=== PATIENT | male | born 1960 | race Caucasian/White ===

== ENCOUNTER → 2017-03-19 | Outpatient (CLI) | payer OTHER | END | disposition home or self-care (01) | LOC: CFH 11:15 | PROVIDERS: ATTEND Family Medicine | DX: M51.36 Other intervertebral disc degeneration, lumbar region (principal); M41.86 Other forms of scoliosis, lumbar region | CPT/HCPCS: 72100 ==

== ENCOUNTER 2018-11-18 20:43 | Inpatient (IN) | payer OTHER ==
[~2018-11-18] VITALS: Ht 182.9 cm; Wt 126.6 kg
--- NOTE | 2018-11-18 22:23 | NUR ---
PT TO ROOM FROM LOBBY VIA WHEELCHAIR
[2018-11-18] MEDS ORDERED: DICL75TA3 PO (22:29)
[2018-11-18] MEDS ORDERED: HYDR-3237 PO (22:29)
--- NOTE | 2018-11-18 22:30 | NUR ---
assessment made. PA at bedside.
[2018-11-18] MEDS ORDERED: MORPHINE SULFATE 4 MG/ML, 1ML ONE ×2 (22:51→23:35)
--- NOTE | 2018-11-18 22:51 | NUR ---
PT IN US AT THIS TIME
[2018-11-18 22:52] LABS: BASOPHILS # (AUTO) 0.08 x10^3/uL (0-0.1); BASOPHILS % (AUTO) 1 % (0-1); EOSINOPHILS # (AUTO) 0.36 x10^3/uL (0-0.4); EOSINOPHILS % (AUTO) 3 % (1-7); LYMPHOCYTES # (AUTO) 3.67 x10^3/uL (1-3.4); LYMPHOCYTES % (AUTO) 34 % (22-44); MD NO; MEAN CORPUSCULAR HEMOGLOBIN 30.5 pg (27.5-34.5); MEAN CORPUSCULAR HGB CONC 33.2 g/dL (33.2-36.2); MEAN CORPUSCULAR VOLUME 91.8 fL (81-97); MEAN PLATELET VOLUME 9.3 fL (7.4-10.4); MONOCYTES # (AUTO) 0.87 x10^3/uL (0.2-0.8); MONOCYTES % (AUTO) 8 % (2-9); NEUTROPHILS # (AUTO) 5.91 x10^3/uL (1.8-6.8); NEUTROPHILS % (AUTO) 54 % (42-75); PLATELET COUNT 211 x10^3/uL (130-400); RED BLOOD COUNT 5.68 x10^6/uL (4.38-5.82); RED CELL DISTRIBUTION WIDTH 14.2 % (9.4-14.8)
[2018-11-18 22:57] LABS: INTERNATIONAL NORMALIZED RATIO 0.96 (0.93-1.1); PROTHROMBIN TIME 10.1 Seconds (9.6-11.5)
[2018-11-18 22:59] LABS: ALBUMIN 3.5 g/dL (3.4-5.0); ANION GAP 5 mmol/L (5-15); CALCIUM 8.7 mg/dL (8.5-10.1); CHLORIDE 110 mmol/L (98-107)
[2018-11-18] MEDS ORDERED: SODIUM CHLORIDE FLUSH 10ML SYR IVF ONE (23:00)
--- NOTE | 2018-11-18 23:01 | NUR ---
PT BACK FROM US. IV ESTABLISHED. PT VISIBLY UNCOMFORTABLE. UNABLE TO SIT STILL. C/O SEVERE PAIN TO RIGHT FOOT. FAINT PULSES HEARD IN RIGHT FOOT WITH DOPPLER. ERP AWARE
[2018-11-18 23:02] LABS: ALANINE AMINOTRANSFERASE 135 U/L (12-78); ALKALINE PHOSPHATASE 81 U/L (45-117); BILIRUBIN,TOTAL 0.2 mg/dL (0.2-1.0); CREATININE 1.28 mg/dL (0.7-1.3); TOTAL PROTEIN 6.5 g/dL (6.4-8.2)
[2018-11-18] MEDS: MORPHINE SULFATE 4 MG/ML, 1ML IVPush PRN ×2 (23:16→23:39)
--- NOTE | 2018-11-18 23:16 | NUR ---
PT MEDICATED PER EMAR WITH MORPHINE FOR PAIN. 5 RIGHTS ADDRESSED.
--- NOTE | 2018-11-18 23:39 | NUR ---
PT STILL IN PAIN DESPITE PAIN MEDS. STATES THE FIRST DOSE HELPED WITH PAIN IN LEG BUT NOT FOOT. SITTING IN CHAIR AT BEDSIDE ROCKING BACK AND FORTH. RE MEDICATED FOR PAIN PER EMAR. 5 RIGHTS ADDRESSED. CHART UP FOR RECHECK. WILL CONTINUE TO MONITOR.
--- NOTE | 2018-11-18 23:48 | NUR ---
DAVIS MOBLEY AT BEDSIDE UPDATING PT ON POC AND LABS/TESTS
--- NOTE | 2018-11-18 23:58 | NUR ---
PT REPORTS PAIN IS "MUCH BETTER" SINCE SECOND DOSE OF PAIN MEDICATION HAS BEEN GIVEN.
--- NOTE | 2018-11-19 00:29 | NUR ---
PT APPEARS MORE COMFORTABLE. PT STATES PAIN IS "MINIMAL" AT THIS TIME. PT BACK ON GURNEY WATCHING TV. WILL CONTINUE TO MONITOR.
[2018-11-19] MEDS ORDERED: MORPHINE SULFATE 4 MG/ML, 1ML ONE (00:46)
[2018-11-19] MEDS ORDERED: HEPARIN 25,000 UNITS/500ML PMX 500 ML ONE (00:46)
[2018-11-19] MEDS ORDERED: HEPARIN 5,000 UNITS/ML, 1ML ONE (00:46)
--- NOTE | 2018-11-19 00:52 | NUR ---
PT IN CT AT THIS TIME.
[2018-11-19] MEDS ORDERED: HEPARIN 25,000 UNITS/500ML PMX 500 ML IV PRN (01:00)
[2018-11-19] MEDS ORDERED: HEPARIN 5,000 UNITS/ML, 1ML IV ONE (01:00)
[2018-11-19] MEDS ORDERED: MORPHINE SULFATE 4 MG/ML, 1ML IVPush PRN ×2 (01:00→07:00)
[2018-11-19] MEDS ORDERED: OMNIPAQUE 350 MG/ML, 100ML BOTTLE ONE (01:21)
[2018-11-19] MEDS ORDERED: morphine SULFATE 10 MG/ML, 1ML IVPush PRN ×2 (01:30→02:00)
[2018-11-19] MEDS ORDERED: ACETAMINOPHEN 325 MG TABLET PO PRN (01:30)
[2018-11-19] MEDS ORDERED: OXYcodone/APAP 5/325MG TABLET PO PRN (02:00)
[2018-11-19 03:20] VITALS: BP 148/91
[2018-11-19] MEDS ORDERED: HYDROmorphone 2 MG/ML, 1ML IVPush PRN (03:30)
[2018-11-19] MEDS ORDERED: HYDROmorphone 2 MG/ML, 1ML ONE ×3 (03:31→11:40)
[2018-11-19] MEDS: OXYcodone IR 5MG TABLET PO PRN (03:38)
[2018-11-19] MEDS: ACETAMINOPHEN 500 MG TABLET PO SCH ×5 (03:55→21:12)
[2018-11-19] MEDS: LACTATED RINGERS 1,000 ML IV SCH ×3 (03:55→21:12)
[2018-11-19] MEDS ORDERED: OXYcodone/APAP 5/325MG TABLET PO SCH (04:00)
[2018-11-19 05:10] LABS: ANION GAP 4 mmol/L (5-15); BASOPHILS # (AUTO) 0.05 x10^3/uL (0-0.1); BASOPHILS % (AUTO) 1 % (0-1); CALCIUM 8.1 mg/dL (8.5-10.1); CHLORIDE 111 mmol/L (98-107); EOSINOPHILS # (AUTO) 0.31 x10^3/uL (0-0.4); EOSINOPHILS % (AUTO) 4 % (1-7); LYMPHOCYTES # (AUTO) 3.02 x10^3/uL (1-3.4); LYMPHOCYTES % (AUTO) 36 % (22-44); MD NO; MEAN CORPUSCULAR HEMOGLOBIN 31.4 pg (27.5-34.5); MEAN CORPUSCULAR HGB CONC 34.5 g/dL (33.2-36.2); MEAN CORPUSCULAR VOLUME 91.1 fL (81-97); MEAN PLATELET VOLUME 9.2 fL (7.4-10.4); MONOCYTES # (AUTO) 0.72 x10^3/uL (0.2-0.8); MONOCYTES % (AUTO) 9 % (2-9); NEUTROPHILS # (AUTO) 4.38 x10^3/uL (1.8-6.8); NEUTROPHILS % (AUTO) 52 % (42-75); PLATELET COUNT 179 x10^3/uL (130-400)
[2018-11-19 05:12] LABS: CREATININE 1.04 mg/dL (0.7-1.3)
[2018-11-19] MEDS ORDERED: HEPARIN 1,000 UNITS/ML, 30ML ONE ×2 (05:57→08:49)
[2018-11-19] MEDS ORDERED: BACITRACIN 50,000 UNIT ONE (05:57)
[2018-11-19] MEDS ORDERED: PAPAVERINE 30 MG/ML, 2ML ONE (05:58)
[2018-11-19] MEDS ORDERED: THROMBIN 20,000 UNIT VIAL TP ONE (05:58)
[2018-11-19] MEDS ORDERED: FENTANYL PF 250 MCG/5ML ONE (06:17)
[2018-11-19] MEDS ORDERED: PROMETHAZINE 12.5 MG SUPP PR PRN (07:00)
[2018-11-19] MEDS ORDERED: LABETALOL 5MG/ML, 20ML IV PRN (07:00)
[2018-11-19] MEDS ORDERED: OXYcodone 5 MG/5 ML ORAL.SOL UDC PO PRN (07:00)
[2018-11-19] MEDS ORDERED: ONDANSETRON 2MG/ML, 2ML IV PRN (07:00)
[2018-11-19] MEDS ORDERED: PROMETHAZINE 25 MG/ML, 1ML IV PRN (07:00)
[2018-11-19] MEDS ORDERED: PROMETHAZINE 25 MG SUPP PR PRN (07:00)
[2018-11-19] MEDS ORDERED: hydrALAzine 20 MG/ML, 1ML IV PRN (07:00)
[2018-11-19] MEDS ORDERED: MEPERIDINE/PF 25MG/0.5ML IVPush PRN (07:00)
[2018-11-19] MEDS ORDERED: ONDANSETRON ODT 8 MG PO PRN (07:00)
[2018-11-19] MEDS ORDERED: PROMETHAZINE 25 MG/ML, 1ML IM PRN ×2 (07:00)
[2018-11-19] MEDS ORDERED: ROCURONIUM 10MG/ML,5ML ONE (09:59)
[2018-11-19] MEDS ORDERED: GLYCOPYRROLATE 0.2MG/1ML, 5ML ONE (09:59)
[2018-11-19] MEDS ORDERED: NEOSTIGMINE 1 MG/ML, 10ML ONE (09:59)
[2018-11-19] MEDS ORDERED: CEFAZOLIN 1,000 MG ONE (09:59)
[2018-11-19] MEDS ORDERED: PROPOFOL 10 MG/ML, 20ML ONE (09:59)
[2018-11-19] MEDS ORDERED: FENTANYL PF 100 MCG/2ML ONE ×2 (10:54→11:40)
[2018-11-19] MEDS ORDERED: OXYcodone 5 MG/5 ML ORAL.SOL UDC ONE (10:54)
[2018-11-19] MEDS: FENTANYL PF 100 MCG/2ML IV PRN ×3 (11:06→11:49)
[2018-11-19] MEDS: HYDROmorphone 2 MG/ML, 1ML IVPush PRN ×6 (11:07→12:50)
[2018-11-19] MEDS: LABETALOL 5 MG/ML SYRINGE IV PRN ×4 (11:07→12:51)
[2018-11-19] MEDS ORDERED: VISIPAQUE 270 MG/ML, 150ML BOTTLE ONE (11:14)
[2018-11-19] MEDS ORDERED: hydrALAzine 20 MG/ML, 1ML ONE (11:40)
[2018-11-19 14:00] VITALS: BP 145/82
[2018-11-19 20:00] VITALS: BP 121/75
[2018-11-19] MEDS: HEPARIN 25,000 UNITS/500ML PMX 500 ML IV PRN (21:20)
[2018-11-19] MEDS: HEPARIN 5,000 UNITS/ML, 1ML IV PRN (23:35)
[2018-11-20] MEDS: ACETAMINOPHEN 500 MG TABLET PO SCH ×7 (00:27→23:49)
[2018-11-20 03:18] VITALS: BP 120/84
[2018-11-20] MEDS ORDERED: CALCIUM CARBONATE 500 MG TAB.CHEW PO ONE (03:30)
[2018-11-20 05:58] LABS: ANION GAP 6 mmol/L (5-15); CALCIUM 8.4 mg/dL (8.5-10.1); CHLORIDE 99 mmol/L (98-107)
[2018-11-20 06:00] LABS: MEAN CORPUSCULAR HEMOGLOBIN 31.3 pg (27.5-34.5); MEAN CORPUSCULAR HGB CONC 33.9 g/dL (33.2-36.2); MEAN CORPUSCULAR VOLUME 92.3 fL (81-97); MEAN PLATELET VOLUME 8.9 fL (7.4-10.4); PLATELET COUNT 146 x10^3/uL (130-400); RED BLOOD COUNT 5.04 x10^6/uL (4.38-5.82); RED CELL DISTRIBUTION WIDTH 14.2 % (9.4-14.8)
[2018-11-20 06:02] LABS: CHOL/HDL RATIO 4.5; CHOLESTEROL, TOTAL 143 mg/dL (140-239); CREATININE 0.94 mg/dL (0.7-1.3); HDL CHOL % 22 % (26-37); HDL CHOLESTEROL (DIRECT) 32 mg/dL (40-60); LDL CHOLESTEROL,CALCULATED 84 mg/dL (54-169); LDL/HDL RATIO 2.6 (0.5-3.0); TRIGLYCERIDES 133 mg/dL (50-200); VLDL CHOLESTEROL 27 mg/dL (0-25)
[2018-11-20] MEDS: HEPARIN 5,000 UNITS/ML, 1ML IV PRN ×3 (06:11→20:51)
[2018-11-20 06:37] LABS: BASOPHILS # (AUTO) 0.05 x10^3/uL (0-0.1); BASOPHILS % (AUTO) 0 % (0-1); EOSINOPHILS # (AUTO) 0.09 x10^3/uL (0-0.4); EOSINOPHILS % (AUTO) 1 % (1-7); LYMPHOCYTES # (AUTO) 1.66 x10^3/uL (1-3.4); LYMPHOCYTES % (AUTO) 12 % (22-44); MD SCAN; MONOCYTES # (AUTO) 1.51 x10^3/uL (0.2-0.8); MONOCYTES % (AUTO) 11 % (2-9); NEUTROPHILS % (AUTO) 76 % (42-75)
[2018-11-20] MEDS: LACTATED RINGERS 1,000 ML IV SCH ×3 (06:45→16:36)
[2018-11-20 06:47] LABS: HEMOGLOBIN A1C 5.7 % (4.2-6.3)
[2018-11-20 08:00] VITALS: BP 126/80
[2018-11-20] MEDS: FAMOTIDINE 20 MG TABLET PO SCH ×2 (08:28→20:03)
[2018-11-20] MEDS: NICOTINE 21 MG/24 HR PATCH.TD24 TD SCH (09:00)
[2018-11-20] MEDS: HEPARIN 25,000 UNITS/500ML PMX 500 ML IV PRN (13:38)
[2018-11-20 14:00] VITALS: BP 114/79
[2018-11-20 18:50] VITALS: BP 126/76
[2018-11-20] MEDS: ATORVASTATIN 80 MG TABLET PO SCH (20:03)
[2018-11-21] MEDS: LACTATED RINGERS 1,000 ML IV SCH ×3 (00:26→19:18)
[2018-11-21 00:28] VITALS: BP 133/85
[2018-11-21 02:54] LABS: BASOPHILS # (AUTO) 0.08 x10^3/uL (0-0.1); BASOPHILS % (AUTO) 1 % (0-1); EOSINOPHILS % (AUTO) 1 % (1-7); LYMPHOCYTES % (AUTO) 12 % (22-44); MD NO; MEAN CORPUSCULAR HEMOGLOBIN 30.9 pg (27.5-34.5); MEAN CORPUSCULAR HGB CONC 33.6 g/dL (33.2-36.2); MEAN CORPUSCULAR VOLUME 92.2 fL (81-97); MEAN PLATELET VOLUME 8.7 fL (7.4-10.4); MONOCYTES # (AUTO) 1.44 x10^3/uL (0.2-0.8); MONOCYTES % (AUTO) 12 % (2-9); NEUTROPHILS # (AUTO) 8.68 x10^3/uL (1.8-6.8); NEUTROPHILS % (AUTO) 74 % (42-75); PLATELET COUNT 120 x10^3/uL (130-400); RED BLOOD COUNT 4.69 x10^6/uL (4.38-5.82); RED CELL DISTRIBUTION WIDTH 14.4 % (9.4-14.8)
[2018-11-21 03:07] LABS: ALANINE AMINOTRANSFERASE 76 U/L (12-78); ALBUMIN 2.8 g/dL (3.4-5.0); ANION GAP 3 mmol/L (5-15); CALCIUM 8.3 mg/dL (8.5-10.1); CHLORIDE 101 mmol/L (98-107); CREATININE 0.87 mg/dL (0.7-1.3)
[2018-11-21 03:09] LABS: ALKALINE PHOSPHATASE 67 U/L (45-117); BILIRUBIN,TOTAL 0.3 mg/dL (0.2-1.0); TOTAL PROTEIN 5.9 g/dL (6.4-8.2)
[2018-11-21] MEDS: HEPARIN 5,000 UNITS/ML, 1ML IV PRN ×3 (03:18→17:04)
[2018-11-21] MEDS: HEPARIN 25,000 UNITS/500ML PMX 500 ML IV PRN ×2 (03:23→15:22)
[2018-11-21] MEDS: ACETAMINOPHEN 500 MG TABLET PO SCH ×5 (03:24→21:06)
[2018-11-21 06:40] VITALS: BP 140/88
[2018-11-21] MEDS: FAMOTIDINE 20 MG TABLET PO SCH ×2 (08:50→21:06)
[2018-11-21] MEDS: OXYcodone IR 5MG TABLET PO PRN ×3 (08:50→17:50)
[2018-11-21] MEDS: NICOTINE 21 MG/24 HR PATCH.TD24 TD SCH (08:51)
[2018-11-21 12:37] VITALS: BP 156/81
[2018-11-21 20:52] VITALS: BP 143/89
[2018-11-21] MEDS: ATORVASTATIN 80 MG TABLET PO SCH (21:06)
[2018-11-22 00:45] VITALS: BP 152/92
[2018-11-22] MEDS: ACETAMINOPHEN 500 MG TABLET PO SCH ×7 (00:50→20:50)
[2018-11-22] MEDS: OXYcodone IR 5MG TABLET PO PRN ×4 (00:58→15:29)
[2018-11-22] MEDS: HEPARIN 25,000 UNITS/500ML PMX 500 ML IV PRN (00:59)
[2018-11-22] MEDS: LACTATED RINGERS 1,000 ML IV SCH ×2 (02:55→11:06)
[2018-11-22 04:44] VITALS: BP 147/84
[2018-11-22 05:32] LABS: MEAN CORPUSCULAR HGB CONC 33.7 g/dL (33.2-36.2); MEAN CORPUSCULAR VOLUME 92.2 fL (81-97); MEAN PLATELET VOLUME 9.2 fL (7.4-10.4); PLATELET COUNT 122 x10^3/uL (130-400); RED BLOOD COUNT 4.52 x10^6/uL (4.38-5.82); RED CELL DISTRIBUTION WIDTH 14.2 % (9.4-14.8)
[2018-11-22 05:45] LABS: ALBUMIN 2.4 g/dL (3.4-5.0); ANION GAP 4 mmol/L (5-15); CALCIUM 8.3 mg/dL (8.5-10.1); CHLORIDE 105 mmol/L (98-107)
[2018-11-22 05:49] LABS: ALANINE AMINOTRANSFERASE 71 U/L (12-78); ALKALINE PHOSPHATASE 58 U/L (45-117); BILIRUBIN,TOTAL 0.5 mg/dL (0.2-1.0); CREATININE 0.73 mg/dL (0.7-1.3); TOTAL PROTEIN 5.7 g/dL (6.4-8.2)
[2018-11-22 06:20] LABS: BASOPHILS # (AUTO) 0.04 x10^3/uL (0-0.1); BASOPHILS % (AUTO) 0 % (0-1); EOSINOPHILS # (AUTO) 0.21 x10^3/uL (0-0.4); EOSINOPHILS % (AUTO) 2 % (1-7); LYMPHOCYTES # (AUTO) 1.86 x10^3/uL (1-3.4); LYMPHOCYTES % (AUTO) 16 % (22-44); MD SCAN; MONOCYTES # (AUTO) 1.55 x10^3/uL (0.2-0.8); MONOCYTES % (AUTO) 13 % (2-9); NEUTROPHILS # (AUTO) 7.96 x10^3/uL (1.8-6.8); NEUTROPHILS % (AUTO) 69 % (42-75)
[2018-11-22 07:03] VITALS: BP 151/87
[2018-11-22] MEDS: FAMOTIDINE 20 MG TABLET PO SCH ×2 (07:56→20:50)
[2018-11-22] MEDS: NICOTINE 21 MG/24 HR PATCH.TD24 TD SCH (07:58)
[2018-11-22] MEDS: APIXABAN 5 MG TABLET PO SCH ×2 (11:58→20:50)
[2018-11-22 12:13] VITALS: BP 142/69
[2018-11-22 19:30] VITALS: BP 167/95
[2018-11-22] MEDS: ATORVASTATIN 80 MG TABLET PO SCH (20:50)
[2018-11-23 01:13] VITALS: BP 147/99
[2018-11-23] MEDS: ACETAMINOPHEN 500 MG TABLET PO SCH ×6 (01:20→22:40)
[2018-11-23] MEDS: OXYcodone IR 5MG TABLET PO PRN ×3 (05:12→22:40)
[2018-11-23 07:03] VITALS: BP 153/90
[2018-11-23] MEDS: FAMOTIDINE 20 MG TABLET PO SCH ×2 (08:19→22:40)
[2018-11-23] MEDS: NICOTINE 21 MG/24 HR PATCH.TD24 TD SCH (08:19)
[2018-11-23] MEDS: APIXABAN 5 MG TABLET PO SCH ×2 (08:19→22:40)
[2018-11-23 13:40] VITALS: BP 140/93
[2018-11-23 20:19] VITALS: BP 141/82
[2018-11-23] MEDS: ATORVASTATIN 80 MG TABLET PO SCH (22:40)
[2018-11-24 00:34] VITALS: BP 131/91
[2018-11-24] MEDS: ACETAMINOPHEN 500 MG TABLET PO SCH ×6 (01:41→20:41)
[2018-11-24 05:20] LABS: ALBUMIN 2.4 g/dL (3.4-5.0); ANION GAP 4 mmol/L (5-15); CALCIUM 8.3 mg/dL (8.5-10.1); CHLORIDE 105 mmol/L (98-107)
[2018-11-24 05:23] LABS: ALANINE AMINOTRANSFERASE 89 U/L (12-78); ALKALINE PHOSPHATASE 62 U/L (45-117); BILIRUBIN,TOTAL 0.7 mg/dL (0.2-1.0); CREATININE 0.75 mg/dL (0.7-1.3); TOTAL PROTEIN 6.1 g/dL (6.4-8.2)
[2018-11-24 05:34] LABS: BASOPHILS # (AUTO) 0.03 x10^3/uL (0-0.1); BASOPHILS % (AUTO) 0 % (0-1); EOSINOPHILS # (AUTO) 0.27 x10^3/uL (0-0.4); EOSINOPHILS % (AUTO) 2 % (1-7); LYMPHOCYTES # (AUTO) 1.67 x10^3/uL (1-3.4); LYMPHOCYTES % (AUTO) 15 % (22-44); MD NO; MEAN CORPUSCULAR HEMOGLOBIN 30.5 pg (27.5-34.5); MEAN CORPUSCULAR HGB CONC 33.4 g/dL (33.2-36.2); MEAN CORPUSCULAR VOLUME 91.4 fL (81-97); MEAN PLATELET VOLUME 8.9 fL (7.4-10.4); MONOCYTES # (AUTO) 1.34 x10^3/uL (0.2-0.8); MONOCYTES % (AUTO) 12 % (2-9); NEUTROPHILS # (AUTO) 7.62 x10^3/uL (1.8-6.8); NEUTROPHILS % (AUTO) 70 % (42-75); PLATELET COUNT 188 x10^3/uL (130-400); RED CELL DISTRIBUTION WIDTH 13.9 % (9.4-14.8)
[2018-11-24] MEDS: OXYcodone IR 5MG TABLET PO PRN ×4 (05:48→23:03)
[2018-11-24 08:28] VITALS: BP 127/75
[2018-11-24] MEDS: FAMOTIDINE 20 MG TABLET PO SCH ×2 (08:46→20:41)
[2018-11-24] MEDS: APIXABAN 5 MG TABLET PO SCH ×2 (08:46→20:41)
[2018-11-24] MEDS: NICOTINE 21 MG/24 HR PATCH.TD24 TD SCH (08:47)
[2018-11-24 13:08] VITALS: BP 132/86
[2018-11-24 13:36] VITALS: BP 138/85
[2018-11-24] MEDS: HYDROmorphone 1 MG/ML, 1ML INJ IV PRN (15:50)
[2018-11-24 19:00] VITALS: BP 126/76
[2018-11-24] MEDS: ATORVASTATIN 80 MG TABLET PO SCH (20:41)
[2018-11-25] MEDS: ACETAMINOPHEN 500 MG TABLET PO SCH ×6 (01:13→20:55)
[2018-11-25 02:52] VITALS: BP 111/72
[2018-11-25] MEDS: OXYcodone IR 5MG TABLET PO PRN ×5 (03:33→20:55)
[2018-11-25 07:48] VITALS: BP 115/70
[2018-11-25] MEDS: APIXABAN 5 MG TABLET PO SCH ×2 (07:55→20:55)
[2018-11-25] MEDS: FAMOTIDINE 20 MG TABLET PO SCH ×2 (07:55→20:55)
[2018-11-25] MEDS: NICOTINE 21 MG/24 HR PATCH.TD24 TD SCH (07:55)
[2018-11-25 12:30] VITALS: BP 134/92
[2018-11-25] MEDS ORDERED: HYDROmorphone 2 MG/ML, 1ML ONE (18:01)
[2018-11-25] MEDS: HYDROmorphone 1 MG/ML, 1ML INJ IV PRN (18:03)
[2018-11-25 20:04] VITALS: BP 143/82
[2018-11-25] MEDS: ATORVASTATIN 80 MG TABLET PO SCH (20:55)
[2018-11-26] MEDS: ACETAMINOPHEN 500 MG TABLET PO SCH ×6 (01:09→20:29)
[2018-11-26] MEDS: OXYcodone IR 5MG TABLET PO PRN ×5 (01:10→21:02)
[2018-11-26 03:23] VITALS: BP 116/78
[2018-11-26 08:08] VITALS: BP 133/86
[2018-11-26] MEDS: NICOTINE 21 MG/24 HR PATCH.TD24 TD SCH (10:12)
[2018-11-26] MEDS: FAMOTIDINE 20 MG TABLET PO SCH ×2 (10:12→20:29)
[2018-11-26] MEDS: APIXABAN 5 MG TABLET PO SCH ×2 (10:12→20:29)
[2018-11-26 13:55] VITALS: BP 116/71
[2018-11-26 19:45] VITALS: BP 130/83
[2018-11-26] MEDS: ATORVASTATIN 80 MG TABLET PO SCH (20:29)
[2018-11-27] MEDS: OXYcodone IR 5MG TABLET PO PRN ×5 (01:00→21:03)
[2018-11-27] MEDS: ACETAMINOPHEN 500 MG TABLET PO SCH ×6 (01:00→21:03)
[2018-11-27 01:02] VITALS: BP 115/78
[2018-11-27 07:14] VITALS: BP 123/83
[2018-11-27] MEDS: FAMOTIDINE 20 MG TABLET PO SCH ×2 (09:28→21:02)
[2018-11-27] MEDS: APIXABAN 5 MG TABLET PO SCH ×2 (09:28→21:02)
[2018-11-27] MEDS: NICOTINE 21 MG/24 HR PATCH.TD24 TD SCH (09:29)
[2018-11-27 13:05] VITALS: BP 128/72
[2018-11-27 19:08] VITALS: BP 111/75
[2018-11-27] MEDS: ATORVASTATIN 80 MG TABLET PO SCH (21:01)
[2018-11-27] MEDS ORDERED: HYDROmorphone 2 MG/ML, 1ML IV PRN (23:30)
[2018-11-28] MEDS: ACETAMINOPHEN 500 MG TABLET PO SCH ×6 (00:59→21:01)
[2018-11-28] MEDS: OXYcodone IR 5MG TABLET PO PRN ×5 (01:00→21:02)
[2018-11-28 01:04] VITALS: BP 115/78
[2018-11-28] MEDS: FAMOTIDINE 20 MG TABLET PO SCH ×2 (07:48→21:01)
[2018-11-28] MEDS: NICOTINE 21 MG/24 HR PATCH.TD24 TD SCH (07:48)
[2018-11-28] MEDS: APIXABAN 5 MG TABLET PO SCH ×2 (07:48→21:02)
[2018-11-28 08:02] VITALS: BP 145/75
[2018-11-28 13:03] VITALS: BP 133/82
[2018-11-28 18:27] VITALS: BP 124/80
[2018-11-28] MEDS: ATORVASTATIN 80 MG TABLET PO SCH (21:01)
[2018-11-29 00:23] VITALS: BP 108/70
[2018-11-29] MEDS: ACETAMINOPHEN 500 MG TABLET PO SCH ×4 (01:29→14:32)
[2018-11-29] MEDS: OXYcodone IR 5MG TABLET PO PRN ×3 (01:32→10:24)
[2018-11-29 07:05] VITALS: BP 112/73
[2018-11-29] MEDS: FAMOTIDINE 20 MG TABLET PO SCH (10:24)
[2018-11-29] MEDS: NICOTINE 21 MG/24 HR PATCH.TD24 TD SCH (10:25)
[2018-11-29] MEDS: APIXABAN 5 MG TABLET PO SCH (10:25)
[2018-11-29] MEDS ORDERED: OXYC5TAB3 PO (12:41)
[2018-11-29] MEDS ORDERED: APIX5TAB PO (12:41)
[2018-11-29] MEDS ORDERED: ATOR-2 PO (12:41)
[2018-11-29] MEDS ORDERED: NICO-487 TD (12:41)
[2018-11-29 13:22] VITALS: BP 148/96
== END 2018-11-29 16:30 | disposition home or self-care (01) | DRG 272 ==
LOC: ED 23:28 → EDIP 11-19 00:41 → 5SO 11-19 01:54 → 4NOR 11-21 18:50 → DCLOUNGE 11-29 16:15
PROVIDERS: ADMIT Internal Medicine; ATTEND Internal Medicine
PROC: 04CP3ZZ Extirpation of Matter from Right Anterior Tibial Artery, Percutaneous Approach (ICD-10-PCS; 2018-11-19)
PROC: 04CK3ZZ Extirpation of Matter from Right Femoral Artery, Percutaneous Approach (ICD-10-PCS; 2018-11-19)
PROC: 047M34Z Dilation of Right Popliteal Artery with Drug-eluting Intraluminal Device, Percutaneous Approach (ICD-10-PCS; 2018-11-19)
PROC: 047K3DZ Dilation of Right Femoral Artery with Intraluminal Device, Percutaneous Approach (ICD-10-PCS; 2018-11-19)
PROC: 04CP3ZZ Extirpation of Matter from Right Anterior Tibial Artery, Percutaneous Approach (ICD-10-PCS; 2018-11-19)
PROC: 04CP0ZZ Extirpation of Matter from Right Anterior Tibial Artery, Open Approach (ICD-10-PCS; 2018-11-19)
PROC: 04CM3ZZ Extirpation of Matter from Right Popliteal Artery, Percutaneous Approach (ICD-10-PCS; principal; 2018-11-19 05:30)
DX: I82.491 Acute embolism and thrombosis of other specified deep vein of right lower extremity (principal); E78.5 Hyperlipidemia, unspecified; F17.200 Nicotine dependence, unspecified, uncomplicated; G47.33 Obstructive sleep apnea (adult) (pediatric); I99.8 Other disorder of circulatory system; R09.02 Hypoxemia; Z79.01 Long term (current) use of anticoagulants; Z86.73 Personal history of transient ischemic attack (TIA), and cerebral infarction without residual deficits; Z88.8 Allergy status to other drugs, medicaments and biological substances
CPT/HCPCS: 36415; 75710; 80048; 80053; 80061; 83036; 83605; 83735; 85025; 85347; 85520; 85610; 85730; 86850; 86900; 93306; 96374; 96375; 96376; G0378; J0690; J1170; J1644; J2270; J2704; J2710; J3010; Q9966; Q9967; C1768; C1876; J0360; J2440; J7120